=== PATIENT | female | born 1990 | race African-American/Black ===

== ENCOUNTER 2017-04-20 11:33 | Emergency (ER) | payer BC ==
[~2017-04-20] VITALS: Ht 160 cm; Wt 64.4 kg
--- NOTE | 2017-04-20 12:27 | PHYS DOC ---
Past Medical History Past Medical History: Other Additional Past Medical Histor: TBI Past Surgical History: Other Additional Past Surgical Histo: EYE,BILAT ARMS/LEGS ORIF Alcohol Use: None Drug Use: None Adult General Chief Complaint Chief Complaint: NEAR [facility] Patient is a 26 year old female who is A1. States she's been having frequent vomiting, unable to keep solids, she is 17 weeks . No known sick contacts, no fevers, no chills, no vaginal discharge, vaginal bleeding, no trauma. Review of Systems Review of Systems Constitutional: Denies fever or chills [ HENT: Denies nasal congestion or sore throat [] Respiratory: Denies cough or shortness of breath [] Cardiovascular: No additional information not addressed in HPI GI: He is to nausea and vomiting. No diarrhea. Mild tenderness to palpation right flank : Denies dysuria or hematuria [] Musculoskeletal: Denies back pain or joint pain [] Integument: Denies rash or skin lesions [] Neurologic: Denies headache, focal weakness or sensory changes [] Endocrine: Denies polyuria or polydipsia [] Current Medications Current Medications Current Medications Medications (Trade) Dose Ordered Sig/Katie Start Time Stop Time Status Last Admin Dose Admin Dextrose/Sodium Chloride 1,000 ml @ 75 mls/hr 1X ONCE 04/20/17 12:30 04/21/17 01:49 04/20/17 12:57 75 MLS/HR Allergies Allergies Allergies Coded Allergies Type Severity Reaction Last Updated Verified No Known Drug Allergies 04/20/17 No Physical Exam Physical Exam Constitutional: Well developed, well nourished, no acute distress, non-toxic appearance. [] HENT: Normocephalic, atraumatic, bilateral external ears normal, oropharynx moist, no oral exudates, nose normal. [] Eyes: EOMI, conjunctiva normal, no discharge. [] Neck: Normal range of motion, no tenderness, supple, no stridor. [] Cardiovascular:Heart rate regular rhythm, no murmur [] Lungs & Thorax: Bilateral breath sounds clear to auscultation, no tachypnea Abdomen: Bowel sounds normal, soft, very mild tenderness mid axillary line right abdomen upper, no masses, no pulsatile masses. [] Skin: Warm, dry, no erythema, no rash. [] Back: No tenderness, no CVA tenderness. [] Extremities: No tenderness, no cyanosis, no clubbing, ROM intact, no edema. [] Neurologic: Alert and oriented X 3, normal motor function, ambulating in the ED with normal gait and without assistance, no focal deficits noted. [] Psychologic: Affect normal, judgement normal, mood normal. [] Current Patient Data Vital Signs Vital Signs Date Time Temp Pulse Resp B/P (MAP) Pulse Ox O2 Delivery O2 Flow Rate FiO2 04/20/17 13:49 74 98/59 (72) 99 Room Air 04/20/17 11:44 98.3 18 98.3 Lab Values Laboratory Tests Test 04/20/17 12:51 04/20/17 14:30 White Blood Count 6.9 x10^3/uL (4.0-11.0) Red Blood Count 3.99 x10^6/uL (3.50-5.40) Hemoglobin 10.7 g/dL (12.0-15.5) L Hematocrit 31.8 % (36.0-47.0) L Mean Corpuscular Volume 80 fL (79-100) Mean Corpuscular Hemoglobin 27 pg (25-35) Mean Corpuscular Hemoglobin Concent 34 g/dL (31-37) Red Cell Distribution Width 15.1 % (11.5-14.5) H Platelet Count 209 x10^3/uL (140-400) Neutrophils (%) (Auto) 76 % (31-73) H Lymphocytes (%) (Auto) 16 % (24-48) L Monocytes (%) (Auto) 8 % (0-9) Eosinophils (%) (Auto) 1 % (0-3) Basophils (%) (Auto) 0 % (0-3) Neutrophils # (Auto) 5.2 x10^3uL (1.8-7.7) Lymphocytes # (Auto) 1.1 x10^3/uL (1.0-4.8) Monocytes # (Auto) 0.5 x10^3/uL (0.0-1.1) Eosinophils # (Auto) 0.0 x10^3/uL (0.0-0.7) Basophils # (Auto) 0.0 x10^3/uL (0.0-0.2) Sodium Level 139 mmol/L (136-145) Potassium Level 3.7 mmol/L (3.5-5.1) Chloride Level 105 mmol/L (98-107) Carbon Dioxide Level 21 mmol/L (21-32) Anion Gap 13 (6-14) Blood Urea Nitrogen 6 mg/dL (7-20) L Creatinine 0.5 mg/dL (0.6-1.0) L Estimated GFR (Cockcroft-Gault) 180.5 BUN/Creatinine Ratio 12 (6-20) Glucose Level 74 mg/dL (70-99) Calcium Level 8.6 mg/dL (8.5-10.1) Total Bilirubin 0.3 mg/dL (0.2-1.0) Aspartate Amino Transferase (AST) 15 U/L (15-37) Alanine Aminotransferase (ALT) 15 U/L (14-59) Alkaline Phosphatase 47 U/L (46-116) Total Protein 7.2 g/dL (6.4-8.2) Albumin 3.1 g/dL (3.4-5.0) L Albumin/Globulin Ratio 0.8 (1.0-1.7) L Urine Color Yellow Urine Clarity Cloudy Urine pH 7.0 Urine Specific [place] 1.025 Urine Protein 30 mg/dL (NEG-TRACE) Urine Glucose (UA) Negative mg/dL (NEG) Urine Ketones (Stick) >=80 mg/dL (NEG) Urine Blood Negative (NEG) Urine Nitrite Negative (NEG) Urine Bilirubin Negative (NEG) Urine Urobilinogen Dipstick 0.2 mg/dL (0.2 mg/dL) Urine Leukocyte Esterase Small (NEG) Urine RBC 0 /HPF (0-2) Urine WBC 1-4 /HPF (0-4) Urine Squamous Epithelial Cells Occ /LPF Urine Amorphous Sediment Present /HPF Urine Bacteria 0 /HPF (0-FEW) Urine Mucus Mod /LPF Laboratory Tests 04/20/17 12:51 Laboratory Tests 04/20/17 12:51 EKG EKG [] Radiology/Procedures Radiology/Procedures [] Course & Med Decision Making Course & Med Decision Making Pertinent Labs and Imaging studies reviewed. (See chart for details) 1504 pt made aware of labs results. Pt in nad, no vomiting in the ED. Pt agrees to follow up with pcp for recheck. Dragon Disclaimer Dragon Disclaimer This electronic medical record was generated, in whole or in part, using a voice recognition dictation system. Departure Departure Impression: Primary Impression: Anemia affecting in second trimester Additional Impressions: Dehydration during Vomiting affecting Disposition: 01 HOME, SELF-CARE Referrals: NO PCP (PCP) pt states she has OB to follow up with, she is to follow up for recheck in 2 days. Pt already has antiemetics at home. Scripts Ondansetron (ONDANSETRON ODT) 4 Mg Tab.rapdis 1 TAB PO PRN Q6-8HRS, #16 TAB Prov: Tammie CULLEN MD 04/20/17 Pnv With Ca,No.72/Iron,Carb/Fa ( PLUS IRON TABLET) 1 Each Tablet 1 TAB PO DAILY, #30 TAB 11 Refills Prov: Tammie CULLEN MD 04/20/17 Problem Qualifiers Tammie CULLEN MD Apr 20, 2017 12:27
[2017-04-20] MEDS ORDERED: IV DEXTROSE 5% - 0.9 % NACL 1,000 ML IV ONE (12:30)
[2017-04-20 13:02] LABS: BASO % 0 % (0-3); EOS % 1 % (0-3); HEMATOCRIT 31.8 % (36.0-47.0); HEMOGLOBIN 10.7 g/dL (12.0-15.5); LYMPH # 1.1 x10^3/uL (1.0-4.8); LYMPH % 16 % (24-48); MEAN CORPUSCULAR HEMOGLOBIN 27 pg (25-35); MEAN CORPUSCULAR HGB CONC 34 g/dL (31-37); MEAN CORPUSCULAR VOLUME 80 fL (79-100); MONO % 8 % (0-9); NEUT % 76 % (31-73); PLATELET COUNT 209 x10^3/uL (140-400); RED BLOOD COUNT 3.99 x10^6/uL (3.50-5.40); RED CELL DISTRIBUTION WIDTH 15.1 % (11.5-14.5); WHITE BLOOD COUNT 6.9 x10^3/uL (4.0-11.0)
[2017-04-20 13:08] LABS: CALCIUM 8.6 mg/dL (8.5-10.1); CREATININE 0.5 mg/dL (0.6-1.0); GFR 180.5; POTASSIUM 3.7 mmol/L (3.5-5.1)
[2017-04-20 13:14] LABS: ALBUMIN 3.1 g/dL (3.4-5.0); ALBUMIN/GLOBULIN RATIO 0.8 (1.0-1.7); TOTAL BILIRUBIN 0.3 mg/dL (0.2-1.0); TOTAL PROTEIN 7.2 g/dL (6.4-8.2)
[2017-04-20 14:40] LABS: BILIRUBIN,URINE NEGATIVE (NEG); GLUCOSE,URINE NEGATIVE (NEG); NITRITE,URINE NEGATIVE (NEG); PROTEIN,URINE 30 mg/dL (NEG-TRACE); UROBILINOGEN,URINE 0.2 mg/dL (0.2 mg/dL)
[2017-04-20 14:59] LABS: RBC,URINE 0 /HPF (0-2)
[2017-04-20 15:00] LABS: BACTERIA,URINE 0 /HPF (0-FEW); SQUAMOUS EPITHELIAL CELL,UR OCC /LPF
[2017-04-20] MEDS ORDERED: PNV1TABL34 PO (15:14)
[2017-04-20] MEDS ORDERED: ONDA4TAB12 PO (15:14)
[2017-04-20 15:19] VITALS: BP 100/58
== END 2017-04-20 15:41 | disposition home or self-care (01) ==
LOC: ER 11:33
DX: O99.012 Anemia complicating pregnancy, second trimester (principal); O21.9 Vomiting of pregnancy, unspecified; O99.282 Endocrine, nutritional and metabolic diseases complicating pregnancy, second trimester; E86.0 Dehydration; Z3A.17 17 weeks gestation of pregnancy
CPT/HCPCS: 36415; 80053; 81001; 85027; 87086; 96360; 96361; J7042; 99285-25

== ENCOUNTER 2017-06-17 01:19 | Inpatient (IN) | payer BC ==
[~2017-06-17] VITALS: Ht 165.1 cm; Wt 63.5 kg
[~2017-06-17 01:19] MED LIST: ONDA4TAB12 PO; PNV1TABL34 PO
[2017-06-17] MEDS ORDERED: IV RINGERS,LACTATED 1000ML 1,000 ML IV SCH ×2 (01:30→02:30)
[2017-06-17] MEDS ORDERED: chlorproMAZINE 25 MG TABLET PO PRN (02:00)
[2017-06-17] MEDS ORDERED: ONDANSETRON PF 4 MG/2 ML VIAL. IV PRN (02:00)
[2017-06-17] MEDS ORDERED: IV DEXTROSE 5%-LACT RINGERS 1,000 ML IV ONE (02:00)
[2017-06-17 02:39] VITALS: BP 107/67
[2017-06-17 02:57] LABS: BASO % 1 % (0-3); EOS % 1 % (0-3); HEMATOCRIT 27.5 % (36.0-47.0); LYMPH # 1.4 x10^3/uL (1.0-4.8); LYMPH % 20 % (24-48); MEAN CORPUSCULAR HEMOGLOBIN 26 pg (25-35); MEAN CORPUSCULAR HGB CONC 33 g/dL (31-37); MEAN CORPUSCULAR VOLUME 80 fL (79-100); MONO % 9 % (0-9); NEUT % 70 % (31-73); PLATELET COUNT 195 x10^3/uL (140-400); RED BLOOD COUNT 3.43 x10^6/uL (3.50-5.40); RED CELL DISTRIBUTION WIDTH 15.5 % (11.5-14.5); WHITE BLOOD COUNT 6.7 x10^3/uL (4.0-11.0)
[2017-06-17] MEDS ORDERED: IV DEXTROSE 5%-LACT RINGERS 1,000 ML IV SCH (03:00)
[2017-06-17 03:09] LABS: ALBUMIN 2.5 g/dL (3.4-5.0); ALBUMIN/GLOBULIN RATIO 0.7 (1.0-1.7); CALCIUM 8.7 mg/dL (8.5-10.1); CREATININE 0.7 mg/dL (0.6-1.0); GFR 121.5; POTASSIUM 3.1 mmol/L (3.5-5.1); TOTAL BILIRUBIN 0.3 mg/dL (0.2-1.0); TOTAL PROTEIN 6.1 g/dL (6.4-8.2)
[2017-06-17] MEDS ORDERED: DEXTROSE 5% IV SCH (03:45)
[2017-06-17] MEDS ORDERED: POTASSIUM CHLORIDE IV SCH (03:45)
[2017-06-17] MEDS ORDERED: LACT RINGERS IV SCH (03:45)
[2017-06-17 08:19] LABS: BILIRUBIN,URINE NEGATIVE (NEG); GLUCOSE,URINE >=1000 mg/dL (NEG); NITRITE,URINE NEGATIVE (NEG); PH,URINE 7.5; PROTEIN,URINE NEGATIVE (NEG-TRACE)
[2017-06-17 08:31] LABS: BACTERIA,URINE 0 /HPF (0-FEW); RBC,URINE 0 /HPF (0-2); SQUAMOUS EPITHELIAL CELL,UR MOD /LPF; WBC,URINE OCC /HPF (0-4)
[2017-06-17 08:32] LABS: BARBITURATES NEG (NEG); BENZODIAZEPINES NEG (NEG); CANNABINOIDS NEG (NEG); COCAINE NEG (NEG); METHADONE NEG (NEG); OPIATES NEG (NEG); PHENCYCLIDINE NEG (NEG)
[2017-06-17] MEDS ORDERED: PANTOPRAZOLE IV PUSH 40 MG VIAL. IVP ONE ×2 (14:30)
[2017-06-17] MEDS: ONDANSETRON PF 4 MG/2 ML VIAL. IV SCH ×2 (14:41→22:39)
[2017-06-17] MEDS: IV RINGERS,LACTATED 1000ML 1,000 ML IV SCH ×2 (18:13→23:56)
[2017-06-17 18:35] LABS: BILIRUBIN,URINE NEGATIVE (NEG); GLUCOSE,URINE 250 mg/dL (NEG); NITRITE,URINE NEGATIVE (NEG); PH,URINE 8.5; PROTEIN,URINE 30 mg/dL (NEG-TRACE)
[2017-06-17 18:40] LABS: BACTERIA,URINE MOD /HPF (0-FEW); RBC,URINE 0 /HPF (0-2); SQUAMOUS EPITHELIAL CELL,UR MOD /LPF
[2017-06-17 18:55] VITALS: BP 104/60
[2017-06-17 22:52] VITALS: BP 100/58
[2017-06-18 05:11] LABS: ALBUMIN/GLOBULIN RATIO 0.7 (1.0-1.7); CALCIUM 7.6 mg/dL (8.5-10.1); CREATININE 0.4 mg/dL (0.6-1.0); GFR 231.7; POTASSIUM 3.5 mmol/L (3.5-5.1); TOTAL BILIRUBIN 0.2 mg/dL (0.2-1.0); TOTAL PROTEIN 4.8 g/dL (6.4-8.2)
[2017-06-18] MEDS: IV RINGERS,LACTATED 1000ML 1,000 ML IV SCH ×2 (05:56→11:47)
[2017-06-18] MEDS: ONDANSETRON PF 4 MG/2 ML VIAL. IV SCH (05:57)
[2017-06-18 06:08] VITALS: BP 97/64
[2017-06-18 12:00] VITALS: BP 98/63
--- NOTE | 2017-06-18 12:13 | PDOC3 ---
OB DISCHARGE SUMMARY DATE OF ADMISSION: 06/17/17 DATE OF DISCHARGE: 06/18/17 REASON FOR ADMISSION: Observation/evaluation, Other (HEG) PROCEDURES: None PROCEDURES: None DISCHARGE DIAGNOSIS: Hyperemesis Gravidarum DISCHARGE INFORMATION: Activity, Diet HOSPITAL COURSE unremarkable CONDITION AT DISCHARGE Stable SEBASTIÁN CASTRO MD Jun 18, 2017 12:13
--- NOTE | 2017-06-18 12:15 | PDOC1 ---
OB - History Hx of Present Care: Good Care Ultrasounds: Normal mid trimester US Obstetrical Complications: Hyperemesis Medical Complications: None Past Family/Social History * Past Medical, Surgical, Family and Obstetric Histories reviewed from chart. Blood Type: Unknown Rubella: Unknown RPR/VDRL: Unknown GBS Status: Unknown HBsAG: Unknown OB - Chief Complaint & HPI Date of Admission: Date of Admission: Jun 17, 2017 at 01:19 Chief Complaint/History : 1 Para: 0 EGA: 26weeks Reason for admission: observation, other (HEG) Admission Nurse Assessment Rev: Yes Problems: OB - Admission Exam Physical Exam Vitals: VS - Last 72 Hours, by Label Date Time Temp Pulse Resp B/P (MAP) Pulse Ox O2 Delivery O2 Flow Rate FiO2 06/18/17 06:08 97.3 86 18 97/64 (75) 98 Room Air 97.3 06/17/17 22:52 98.6 89 18 100/58 (72) 100 Room Air 98.6 06/17/17 18:55 97.8 90 17 104/60 (75) 97.8 06/17/17 02:39 98.8 88 20 107/67 (80) Room Air 98.8 HEENT: Normal, Nasal Mucosa Normal, Oropharynx Normal, Moist Membranes, Fontanelles Normal Heart: Regular Rate Lungs: Clear, Equal Abdomen: Gravid Extremities: Normal Pulses, No tenderness or swelling Reflexes: Normal Cervical Dilatation: None Effacement: 0% Membranes: Intact Heart Rate: Normal Assessment/Plan Assessment/Plan 26 wk IUP HEG Admit hydrate nausea meds Problems: SEBASTIÁN CASTRO MD Jun 18, 2017 12:15
[2017-06-18] MEDS ORDERED: PROM25SU32 PO (12:17)
[2017-06-18] MEDS ORDERED: ONDANSETRON ODT 4 MG TAB.RAPDIS. PO PRN (15:45)
== END 2017-06-18 17:49 | disposition home or self-care (01) | DRG 781 ==
LOC: 3 SO LND 01:19 → OBSVTOIN 06-18 11:34
PROVIDERS: ADMIT Specialist; ATTEND Specialist
DX: O21.0 Mild hyperemesis gravidarum (principal); Z3A.26 26 weeks gestation of pregnancy
CPT/HCPCS: 36415; 80053; 80307; 81001; 84443; 85025; 87086; C9113; G0378; G0379; J2405; J3480; J7120; Q0161; Q0162; G0479

== ENCOUNTER 2017-10-03 09:11 | Inpatient (IN) | payer BC ==
[2017-10-03] MEDS: ONDANSETRON PF 4 MG/2 ML VIAL. IV (10:04)
[2017-10-03] MEDS: MORPHINE SULFATE 4 MG/ML DISP.SYRIN. IV ×2 (10:04→11:38)
[2017-10-03 10:11] LABS: HEMATOCRIT 34.9 % (36.0-47.0); HEMOGLOBIN 10.8 g/dL (12.0-15.5); MEAN CORPUSCULAR HEMOGLOBIN 23 pg (25-35); MEAN CORPUSCULAR HGB CONC 31 g/dL (31-37); MEAN CORPUSCULAR VOLUME 73 fL (79-100); PLATELET COUNT 434 x10^3/uL (140-400); RED BLOOD COUNT 4.78 x10^6/uL (3.50-5.40); RED CELL DISTRIBUTION WIDTH 18.9 % (11.5-14.5); WHITE BLOOD COUNT 19.2 x10^3/uL (4.0-11.0)
[2017-10-03 10:15] LABS: ANION GAP 12 (6-14); BLOOD UREA NITROGEN 12 mg/dL (7-20); BUN/CREATININE RATIO 17 (6-20); CALCIUM 9.2 mg/dL (8.5-10.1); CARBON DIOXIDE 27 mmol/L (21-32); CHLORIDE 100 mmol/L (98-107); CREATININE 0.7 mg/dL (0.6-1.0); GFR 121.5; GLUCOSE 136 mg/dL (70-99); POTASSIUM 4.3 mmol/L (3.5-5.1); SODIUM 139 mmol/L (136-145)
[2017-10-03 10:20] LABS: ALBUMIN 3.1 g/dL (3.4-5.0); ALBUMIN/GLOBULIN RATIO 0.6 (1.0-1.7); ALK PHOS 242 U/L (46-116); ALT (SGPT) 243 U/L (14-59); AST (SGOT) 222 U/L (15-37); LIPASE 82 U/L (73-393); TOTAL BILIRUBIN 2.1 mg/dL (0.2-1.0); TOTAL PROTEIN 8.2 g/dL (6.4-8.2)
[2017-10-03 10:37] LABS: BILIRUBIN,URINE MODERATE (NEG); CLARITY,URINE CLOUDY; COLOR,URINE ORANGE; GLUCOSE,URINE NEGATIVE (NEG); NITRITE,URINE NEGATIVE (NEG); PROTEIN,URINE 30 mg/dL (NEG-TRACE)
[2017-10-03 10:51] LABS: NEG OBC UR NEG; POS OBC UR POS; U PREG PATIENT POSITIVE (NEG)
[2017-10-03 10:56] LABS: RBC,URINE >40 /HPF (0-2)
[2017-10-03] MEDS: IV NORMAL SALINE 1000ML BAG 1,000 ML IV ×2 (10:56→14:48)
[2017-10-03 10:57] LABS: BACTERIA,URINE FEW /HPF (0-FEW); SQUAMOUS EPITHELIAL CELL,UR OCC /LPF
[2017-10-03] MEDS ORDERED: PIPERACILLIN/TAZOBACTAM 3.375 GM in IV DEXTROSE 5% 50 ML IV (11:15)
[2017-10-03] MEDS ORDERED: PIPERACILLIN/TAZO IV Push 3.375 GM VIAL. IVP (11:30)
[2017-10-03] MEDS: PIPERACILLIN/TAZO IV Push 3.375 GM VIAL. IVP (11:45)
[2017-10-03 11:54] LABS: LACTIC ACID 2.1 mmol/L (0.4-2.0)
[2017-10-03] MEDS: fentaNYL PF VIAL 100 MCG/2 ML VIAL IV ×3 (14:44→19:51)
[2017-10-03] MEDS ORDERED: MORPHINE SULFATE 4 MG/ML DISP.SYRIN. IV (17:45)
[2017-10-03] MEDS: oxyCODONE/APAP 5/325 1 TAB TABLET PO (20:06)
[2017-10-04] MEDS: IV NORMAL SALINE 1000ML BAG 1,000 ML IV ×3 (00:45→20:48)
[2017-10-04 05:57] LABS: ADD MAN DIFF? NO
[2017-10-04 06:09] LABS: BASO % 0 % (0-3); EOS # 0.5 x10^3/uL (0.0-0.7); EOS % 4 % (0-3); HEMATOCRIT 31.2 % (36.0-47.0); HEMOGLOBIN 9.6 g/dL (12.0-15.5); LYMPH # 0.6 x10^3/uL (1.0-4.8); LYMPH % 5 % (24-48); MEAN CORPUSCULAR HEMOGLOBIN 22 pg (25-35); MEAN CORPUSCULAR HGB CONC 31 g/dL (31-37); MEAN CORPUSCULAR VOLUME 73 fL (79-100); MONO # 0.6 x10^3/uL (0.0-1.1); MONO % 6 % (0-9); NEUT # 9.6 x10^3uL (1.8-7.7); NEUT % 85 % (31-73); PLATELET COUNT 359 x10^3/uL (140-400); RED BLOOD COUNT 4.28 x10^6/uL (3.50-5.40); RED CELL DISTRIBUTION WIDTH 18.8 % (11.5-14.5); WHITE BLOOD COUNT 11.4 x10^3/uL (4.0-11.0)
[2017-10-04 06:46] LABS: ALBUMIN 2.5 g/dL (3.4-5.0); ALBUMIN/GLOBULIN RATIO 0.6 (1.0-1.7); ALK PHOS 222 U/L (46-116); ALT (SGPT) 144 U/L (14-59); ANION GAP 11 (6-14); AST (SGOT) 75 U/L (15-37); BLOOD UREA NITROGEN 9 mg/dL (7-20); BUN/CREATININE RATIO 15 (6-20); CALCIUM 8.3 mg/dL (8.5-10.1); CARBON DIOXIDE 22 mmol/L (21-32); CHLORIDE 103 mmol/L (98-107); CREATININE 0.6 mg/dL (0.6-1.0); GFR 145.1; GLUCOSE 86 mg/dL (70-99); POTASSIUM 3.7 mmol/L (3.5-5.1); SODIUM 136 mmol/L (136-145); TOTAL BILIRUBIN 1.8 mg/dL (0.2-1.0)
[2017-10-04] MEDS ORDERED: GLUCAGON,HUMAN RECOMBINANT 1 MG/ML VIAL. (07:39)
[2017-10-04] MEDS ORDERED: SURGICEL HEMOSTAT 4X8 EACH. (07:39)
[2017-10-04] MEDS ORDERED: MORPHINE SULFATE 2 MG/ML DISP.SYRIN. IV (07:45)
[2017-10-04] MEDS ORDERED: LIDOCAINE 1% PF 2 ML VIAL. ID (07:45)
[2017-10-04] MEDS ORDERED: ONDANSETRON PF 4 MG/2 ML VIAL. IV (07:45)
[2017-10-04] MEDS: IV RINGERS,LACTATED 1000ML 1,000 ML IV (07:45)
[2017-10-04] MEDS ORDERED: fentaNYL PF VIAL 100 MCG/2 ML VIAL IV (07:45)
[2017-10-04] MEDS ORDERED: PROCHLORPERAZINE 10 MG/2 ML VIAL. IV (07:45)
[2017-10-04] MEDS: FAMOTIDINE 20 MG/2 ML VIAL IVP ×2 (10:00→20:50)
[2017-10-04] MEDS ORDERED: ONDANSETRON PF 4 MG/2 ML VIAL. (12:27)
[2017-10-04] MEDS ORDERED: PROPOFOL 20 ML IV (12:27)
[2017-10-04] MEDS ORDERED: ROCURONIUM 50 MG/5 ML VIAL. (12:28)
[2017-10-04] MEDS ORDERED: fentaNYL PF VIAL 100 MCG/2 ML VIAL (12:28)
[2017-10-04] MEDS ORDERED: MIDAZOLAM HCL/PF 2 MG/2 ML VIAL. (12:28)
[2017-10-04] MEDS ORDERED: LIDOCAINE 2% PF Vial for OR 5 ML VIAL. (12:47)
[2017-10-04] MEDS: IOHEXOL 300 MG/ML 100ML VIAL. (13:00)
[2017-10-04] MEDS: BUPIVACAINE MPF 0.5% 30 ML VIAL. (13:00)
[2017-10-04] MEDS ORDERED: SEVOFLURANE 61 TO 120 MINUTES. IH (13:02)
[2017-10-04] MEDS ORDERED: ESMOLOL 100 MG/10 ML VIAL. IV (13:02)
[2017-10-04] MEDS ORDERED: KETOROLAC 30 MG/ML INJ FOR OR. INJ (13:46)
[2017-10-04] MEDS: fentaNYL PF VIAL 100 MCG/2 ML VIAL IV ×2 (14:25→14:42)
[2017-10-04] MEDS: AMPICILLIN/SULBACTAM IV Push 3 GM VIAL. IVP ×2 (14:30→19:00)
[2017-10-04] MEDS: HYDROmorphone 2 MG/ML VIAL IV (14:53)
[2017-10-04] MEDS: oxyCODONE/APAP 5/325 1 TAB TABLET PO ×2 (16:24→19:54)
[2017-10-04] MEDS ORDERED: AMPICILLIN/SULBACTAM 3 GM in IV NORMAL SALINE 100ML 100 ML IV (18:00)
[2017-10-05] MEDS: AMPICILLIN/SULBACTAM IV Push 3 GM VIAL. IVP ×5 (01:25→23:50)
[2017-10-05 04:39] LABS: BASO % 0 % (0-3); EOS % 0 % (0-3); HEMATOCRIT 29.3 % (36.0-47.0); HEMOGLOBIN 9.1 g/dL (12.0-15.5); LYMPH # 0.5 x10^3/uL (1.0-4.8); LYMPH % 4 % (24-48); MEAN CORPUSCULAR HEMOGLOBIN 22 pg (25-35); MEAN CORPUSCULAR HGB CONC 31 g/dL (31-37); MEAN CORPUSCULAR VOLUME 72 fL (79-100); MONO % 8 % (0-9); NEUT # 11.7 x10^3uL (1.8-7.7); NEUT % 88 % (31-73); PLATELET COUNT 343 x10^3/uL (140-400); RED BLOOD COUNT 4.08 x10^6/uL (3.50-5.40); RED CELL DISTRIBUTION WIDTH 18.6 % (11.5-14.5); WHITE BLOOD COUNT 13.2 x10^3/uL (4.0-11.0)
[2017-10-05 04:43] LABS: ADD MAN DIFF? YES
[2017-10-05 05:03] LABS: ALBUMIN 2.1 g/dL (3.4-5.0); ALBUMIN/GLOBULIN RATIO 0.5 (1.0-1.7); ALK PHOS 179 U/L (46-116); ALT (SGPT) 104 U/L (14-59); ANION GAP 11 (6-14); AST (SGOT) 46 U/L (15-37); BLOOD UREA NITROGEN 14 mg/dL (7-20); BUN/CREATININE RATIO 28 (6-20); CALCIUM 8.1 mg/dL (8.5-10.1); CARBON DIOXIDE 23 mmol/L (21-32); CHLORIDE 104 mmol/L (98-107); CREATININE 0.5 mg/dL (0.6-1.0); GFR 179.1; GLUCOSE 125 mg/dL (70-99); POTASSIUM 4.2 mmol/L (3.5-5.1); SODIUM 138 mmol/L (136-145); TOTAL BILIRUBIN 0.4 mg/dL (0.2-1.0); TOTAL PROTEIN 6.6 g/dL (6.4-8.2)
[2017-10-05] MEDS: IV NORMAL SALINE 1000ML BAG 1,000 ML IV ×3 (06:35→20:52)
[2017-10-05] MEDS: oxyCODONE/APAP 5/325 1 TAB TABLET PO ×2 (07:33→17:25)
[2017-10-05 07:43] LABS: % BANDS 2 % (0-9); % LYMPHS 5 % (24-48); % METAS 3 % (0-0); % MONOS 5 % (0-10); % SEGS 85 % (35-66)
[2017-10-05 07:45] LABS: PLT ESTIMATE ADEQUATE (ADEQUATE)
[2017-10-05 07:46] LABS: ANISOCYTOSIS MOD; HYPOCHROMIA SLIGHT; MICROCYTOSIS MOD
[2017-10-05] MEDS: FAMOTIDINE 20 MG/2 ML VIAL IVP (08:40)
[2017-10-05] MEDS: ENOXAPARIN 40 MG/0.4 ML SYRINGE. SQ (08:43)
[2017-10-05] MEDS: LACTOBACILLUS RHAMNOSUS GG 1 CAPSULE. PO (20:48)
[2017-10-05] MEDS: FAMOTIDINE 20 MG TABLET. PO (21:00)
[2017-10-06] MEDS: oxyCODONE/APAP 5/325 1 TAB TABLET PO (04:10)
[2017-10-06] MEDS: AMPICILLIN/SULBACTAM IV Push 3 GM VIAL. IVP ×3 (06:09→18:00)
[2017-10-06] MEDS: LACTOBACILLUS RHAMNOSUS GG 1 CAPSULE. PO (08:52)
[2017-10-06] MEDS: ENOXAPARIN 40 MG/0.4 ML SYRINGE. SQ (08:53)
[2017-10-06 10:24] LABS: ADD MAN DIFF? NO
[2017-10-06 10:36] LABS: BASO % 1 % (0-3); EOS # 0.2 x10^3/uL (0.0-0.7); EOS % 3 % (0-3); HEMATOCRIT 31.2 % (36.0-47.0); HEMOGLOBIN 9.5 g/dL (12.0-15.5); LYMPH # 1.9 x10^3/uL (1.0-4.8); LYMPH % 25 % (24-48); MEAN CORPUSCULAR HEMOGLOBIN 22 pg (25-35); MEAN CORPUSCULAR HGB CONC 30 g/dL (31-37); MEAN CORPUSCULAR VOLUME 72 fL (79-100); MONO # 0.4 x10^3/uL (0.0-1.1); MONO % 5 % (0-9); NEUT # 4.8 x10^3uL (1.8-7.7); NEUT % 66 % (31-73); PLATELET COUNT 385 x10^3/uL (140-400); RED BLOOD COUNT 4.34 x10^6/uL (3.50-5.40); RED CELL DISTRIBUTION WIDTH 18.7 % (11.5-14.5); WHITE BLOOD COUNT 7.4 x10^3/uL (4.0-11.0)
[2017-10-06 11:02] LABS: ANION GAP 11 (6-14); BLOOD UREA NITROGEN 8 mg/dL (7-20); GLUCOSE 121 mg/dL (70-99); SODIUM 140 mmol/L (136-145)
[2017-10-06 11:07] LABS: ALBUMIN 2.1 g/dL (3.4-5.0); ALBUMIN/GLOBULIN RATIO 0.5 (1.0-1.7); ALK PHOS 139 U/L (46-116); ALT (SGPT) 70 U/L (14-59); AST (SGOT) 24 U/L (15-37); BUN/CREATININE RATIO 16 (6-20); CALCIUM 7.9 mg/dL (8.5-10.1); CARBON DIOXIDE 23 mmol/L (21-32); CHLORIDE 106 mmol/L (98-107); CREATININE 0.5 mg/dL (0.6-1.0); GFR 179.1; POTASSIUM 3.7 mmol/L (3.5-5.1); TOTAL BILIRUBIN 0.3 mg/dL (0.2-1.0); TOTAL PROTEIN 6.4 g/dL (6.4-8.2)
[2017-10-06] MEDS: IV NORMAL SALINE 1000ML BAG 1,000 ML IV (13:35)
[2017-10-06] MEDS ORDERED: POLYETHYLENE GLYCOL 3350 17 GM PACKET. PO (15:15)
== END 2017-10-06 19:44 | disposition home or self-care (01) | DRG 769 ==
LOC: ER 09:11 → ED HOLD 11:18 → 6 SOUTH 14:09
PROC: 0FT44ZZ Resection of Gallbladder, Percutaneous Endoscopic Approach (ICD-10-PCS; principal; 2017-10-04 12:45)
PROC: BF131ZZ Fluoroscopy of Gallbladder and Bile Ducts using Low Osmolar Contrast (ICD-10-PCS; 2017-10-04 12:45)
DX: O24.430 Gestational diabetes mellitus in the puerperium, diet controlled (principal); E87.2 Acidosis; R78.81 Bacteremia; K80.00 Calculus of gallbladder with acute cholecystitis without obstruction; K75.9 Inflammatory liver disease, unspecified; G81.94 Hemiplegia, unspecified affecting left nondominant side; O90.89 Other complications of the puerperium, not elsewhere classified; N13.30 Unspecified hydronephrosis; O99.63 Diseases of the digestive system complicating the puerperium; K21.9 Gastro-esophageal reflux disease without esophagitis; D72.829 Elevated white blood cell count, unspecified; O99.89 Other specified diseases and conditions complicating pregnancy, childbirth and the puerperium; G31.84 Mild cognitive impairment of uncertain or unknown etiology; D50.9 Iron deficiency anemia, unspecified; B95.5 Unspecified streptococcus as the cause of diseases classified elsewhere; Z82.49 Family history of ischemic heart disease and other diseases of the circulatory system
CPT/HCPCS: 36415; 74176; 74300; 76700; 76856; 80053; 81001; 81025; 83605; 83690; 85007; 85025; 85027; 87040; 87205; 88304; 96361; 96374; 96375; 96376; 97110-GP; 97116-GP; 97161-GP; 97165-GO; 97530-GP; 99285; 99285-25; J0295; J0690; J1170; J1610; J1650; J1885; J2250; J2270; J2405; J2543; J2704; J3010; J3490; J7030; J7120; Q9967; S0028